=== PATIENT | male | born 1955 | race Caucasian/White ===

== ENCOUNTER 2016-08-19 08:11 | Day surgery (SDC) | payer MEDICARE ==
[~2016-08-19] VITALS: Ht 177.8 cm; Wt 100.5 kg
--- NOTE | ~2016-08-19 | OR ---
PATIENT'S NAME: COLLETTE ZELAYA [facility] AGE: 60 Y [address] ROOM: [place] [id number] LOCATION: GPCU ADMIT DATE: 08/19/2016 OR/Procedure Report DISCHARGE DATE: FAMILY PHYSICIAN: Bertrand Vo MD ATTENDING PHYSICIAN: TYRONE HOUSE SURGEON: Tyrone House MD DIRECTORY CARRIER: DATE OF PROCEDURE: 08/19/2016 PREOPERATIVE DIAGNOSIS: End-stage renal disease. POSTOPERATIVE DIAGNOSIS: End-stage renal disease. PROCEDURE: Left arm brachiobasilic AV fistula. SOFA BACK UPHOLSTERER: JANES Rodriguez ANESTHESIA: General. ESTIMATED FLUID LOSS: Minimal, approximately 10 mL. OPERATIVE FINDINGS: Good thrill and bruit in the basilic vein. Strong radial and ulnar signals at the end of the case. DESCRIPTION OF PROCEDURE: The patient was brought to the operating room, placed supine on the operating table, placed under general anesthesia. Prepped and draped in a sterile manner. Preoperative time-out was performed. We made a standard incision, 2 cm proximal to the antecubital fossa, dissected down the fascia, incised the fascia in a longitudinal manner. Dissected out the brachial artery. Dissected out the basilic vein, also in a 360-degree fashion, we transected it distally. We then gave 5000 units of heparin. We clamped proximally and distally. We already made a 4 mm arteriotomy and then did a standard 6-0 Prolene anastomosis from the vein to the artery. We removed the clamps. There was excellent flow into the basilic vein, which was confirmed with the use of Doppler. We then checked the radial and ulnar signal, which were also patent. The heparin was reversed with protamine. Deep layers were closed with 2-0 and 3-0 Vicryl. Skin was closed with running 4-0 Monocryl. The patient tolerated the procedure well and transferred to recovery room and then home later that day. TYRONE HOUSE MD PATIENT'S NAME: COLLETTE ZELAYA [facility] AGE: 60 Y [address] ROOM: [place] [id number] LOCATION: [facility] ADMIT DATE: 08/19/2016 OR/Procedure Report DISCHARGE DATE: FAMILY PHYSICIAN: Bertrand Vo MD ATTENDING PHYSICIAN: TYRONE HOUSE/gill /[id number] d: 08/19/16 1353 t: 08/21/16 181, OPERATIVE SUMMARY
[~2016-08-19 08:11] MED LIST: ALDACTONE25 MG PO; ATIVAN 0.5MG0.5 MG PO; COLACE100 MG PO; COREG6.25 MG PO; ENULOSE UD L30 ML/EA PO; FISH OIL1000 MG PO; GLUCOPHAGE500 MG PO; HUMIBID LA (MU600 MG PO; LEVOTHROID (SY50 MCG PO; LIPITOR10 MG PO; LOPRESSOR25 MG PO; MIRALAX PO527 GM/BOT PO; RANEXA ER500 MG PO; RENVELA800 MG PO; SENSIPAR60 MG PO; TOPAMAX25 MG PO; VELPHORO500 MG PO; VITAMIN B-625 MG PO; ZAROXOLYN5 MG PO; ZINCATE (50 MG220 MG PO
[2016-08-19 09:31] LABS: BASOPHIL # 0.1 K/uL (0.0-0.2); BASOPHIL % 0.6 %; EOSINOPHIL # 0.2 K/uL (0.0-0.5); EOSINOPHIL % 2.2 %; HEMATOCRIT 42.6 % (37.0-53.0); HEMOGLOBIN 14.2 g/dL (11.0-16.0); IMMATURE GRANULOCYTE % 0.5 %; LYMPHOCYTE # 0.8 K/uL (0.8-4.0); LYMPHOCYTE % 9.3 %; MCH 34.4 pg (27.0-34.0); MCHC 33.3 gm/dL (32.0-36.5); MCV 103.1 fl (83.0-98.0); MONOCYTE # 0.8 K/uL (0.0-1.0); MONOCYTE % 9.3 %; MPV 10.4 fl (9.4-12.4); NEUTROPHIL # (ANC) 6.3 K/uL (1.4-9.0); NEUTROPHIL % 78.1 %; NRBC % 0 /100WBC (0-0.00); PLATELET COUNT 196 K/uL (150-450); RBC 4.13 M/uL (3.50-5.50); RDW-CV 17.5 % (11.9-14.6)
[2016-08-19] MEDS ORDERED: ADVIL200 MG PO (09:33)
[2016-08-19 09:46] LABS: ALBUMIN 3.1 gm/dL (3.5-5.0); ANION GAP 21.4 (10.0-19.0); POTASSIUM 4.4 mMol/L (3.7-5.1); TOTAL BILIRUBIN 0.3 mg/dL (0.0-1.5); TOTAL PROTEIN 7.1 g/dL (6.0-8.4)
[2016-08-19 09:50] LABS: CALCIUM 7.2 mg/dL (8.5-10.5); CREATININE 8.8 mg/dL (0.6-1.3)
--- NOTE | 2016-08-19 17:08 | NUR ---
Significant Event: A/O. VSS on RA. Denies pain. Good Bruit and thrill to r) fistula. Up with 1 assist. NO narcs after 0200 - to dismiss by 0900 tomorrow at the latest to make it to 1045 dialysis in [place]. Dismissal orders checked off. Follow up:
[2016-08-19] MEDS ORDERED: NORCO 5-325 TA1 EACH PO (17:09)
--- NOTE | 2016-08-20 04:50 | NUR ---
Significant Event: A/O, SBP 120-150s, HR in afib 60-80s, RA, afebrile, 1 norco given at 2015 for pain to R)arm at fistula site, bruit and thrill present but faint, hs accucheck 113, pleasant with cares Follow up: to leave at 0800, dismissal paperwork completed, 1045 dialysis chair in [place], patient driving self there
--- NOTE | 2016-08-20 08:31 | NUR ---
Mkiy Jules RN reviewed dismissal instructions with patient. Discontinued telemetry and saline lock. Patient denies questions regarding dismissal information. Patient taken to vehicle by Rios Duong CNA via wheelchair. Bruit and thrill noted to right arm fistula.
[2016-11-17] MEDS ORDERED: TYLENOL325 MG PO (11:28)
[2016-11-17] MEDS ORDERED: ATIVAN 0.5MG0.5 MG PO (11:29)
[2016-11-17] MEDS ORDERED: GENERLAC10 GM/15 M PO (11:31)
[2016-11-17] MEDS ORDERED: MIRALAX17 GM PO (11:33)
[2016-11-17] MEDS ORDERED: SENSIPAR60 MG PO (11:34)
== END 2016-08-20 08:31 | disposition disaster alternative care site (69) ==
LOC: UNDOADMIN 08:11 → GPCU 08:11 → GSDC 08:11 → GPCU 08:11 → EDSTATUS 09:00 → GPCU 14:48 → GSDC 08-20 08:31
PROVIDERS: Surgery Vascular Surgery
PROC: 03180ZF Bypass Left Brachial Artery to Lower Arm Vein, Open Approach (ICD-10-PCS; principal; 2016-08-19)
DX: E11.22 Type 2 diabetes mellitus with diabetic chronic kidney disease (principal); I13.2 Hypertensive heart and chronic kidney disease with heart failure and with stage 5 chronic kidney disease, or end stage renal disease; N18.6 End stage renal disease; I50.9 Heart failure, unspecified; I25.10 Atherosclerotic heart disease of native coronary artery without angina pectoris; I48.91 Unspecified atrial fibrillation; E78.5 Hyperlipidemia, unspecified; F32.9 Major depressive disorder, single episode, unspecified; F17.210 Nicotine dependence, cigarettes, uncomplicated; Z99.2 Dependence on renal dialysis; Z79.899 Other long term (current) drug therapy
CPT/HCPCS: J0690; J1644; J2001; J2405; J2720; J3010; J7030

== ENCOUNTER 2016-11-18 10:43 | Day surgery (SDC) | payer MEDICARE ==
--- NOTE | 2016-11-17 14:31 | NUR ---
Carbide Operator- phone call from Mike with Dr. Gold's office with concerns regarding patient's procedure tomorrow. Patient is scheduled for R Fistula tomorrow. The concern is that he is driving himself from [place] and he plans on driving himself home. Per Mike, she was told by the dialysis center in [place] ([phone]) that patient does not have any money to pay for gas here, does not have food, and does not have anyone available to bring him to [place]. I called Rena at [facility] in [place] and she states they were able to give him a gas voucher and she gave him some of her own gibson to assure he had gas to get him to [place]. He does not have a working phone at this time. His friends that normally help him with transportation, Sierra and Serafin Martinez ([phone]) are on vacation in [place] so they are not available to assist him. Per Rena he plans on driving himself to [place] tomorrow. He is scheduled to arrive at the [facility] at 1030 on November 18. I spoke to Tabby in Pre-op and she was concerned as she was thinking I was setting patient up to stay in the [facility] for tomorrow night following surgery and she states this is not advised due to liability reasons. I informed her that I was looking at the [facility] for tonight (prior to surgery) not for tomorrow night. She states he will not be coming until tomorrow so no room is needed tonight. They would like to assure that he can stay tomorrow night. I contacted Serge Ramirez, [employer] and she indicates we will be able to have patient stay tomorrow night following surgery as an SDR as long as Dr. Gold makes note that patient is here for "out patient procedure with an overnight stay". I shared this information with both Tabby in Preop and Mike at Dr. Gold's office, as well as director Pavithra Lynn.
[~2016-11-18] VITALS: Ht 177.8 cm; Wt 93.8 kg
--- NOTE | ~2016-11-18 | OR ---
PATIENT'S NAME: COLLETTE ZELAYA [facility] AGE: 61 Y [address] ROOM: [address] [address] LOCATION: [facility] ADMIT DATE: 11/18/2016 OR/Procedure Report DISCHARGE DATE: FAMILY PHYSICIAN: Tyrel Devries MD ATTENDING PHYSICIAN: TYRONE HOUSE SURGEON: Tyrone House MD RHIC SYSTEMS SAFETY ENGINEER: Dehydrogenation Converter Operator: JANES Rodriguez. DATE OF PROCEDURE: 11/18/2016 PREOPERATIVE DIAGNOSIS: End-stage renal disease with a right brachiobasilic fistula POSTOPERATIVE DIAGNOSIS: End-stage renal disease with a right brachiobasilic fistula PROCEDURE: Right arm basilic fistula superficialization. ANESTHESIA: General. ESTIMATED BLOOD LOSS: 10 mL. OPERATIVE FINDINGS: Fistula now located right under the skin, easily accessible. DESCRIPTION OF PROCEDURE: The patient was brought to the operating room, placed supine on the operating table, prepped and draped in a sterile manner. Preoperative time-out was performed. The patient received preoperative antibiotics. We made an incision along the entire length of the basilic vein. We then dissected in a 360-degree fashion ligating any side branches. We then reapproximated the deep layers below the vein with 2-0 Vicryl. We then reapproximated the skin right over the vein with interrupted nylon stitches. The patient tolerated the procedure well and transferred to the recovery room and then admitted for observation for 24 hours. MD PETRA SANTA/modl /[id number] d: 11/18/16 2252 t: 11/20/16 1014, OPERATIVE SUMMARY
[~2016-11-18 10:43] MED LIST changes: +ADVIL200 MG PO; +GENERLAC10 GM/15 M PO; +MIRALAX17 GM PO; +NORCO 5-325 TA1 EACH PO; +TYLENOL325 MG PO
[2016-11-18 11:30] LABS: BASOPHIL # 0.1 K/uL (0.0-0.2); BASOPHIL % 0.7 %; EOSINOPHIL # 0.1 K/uL (0.0-0.5); EOSINOPHIL % 0.5 %; HEMOGLOBIN 18.1 g/dL (11.0-16.0); IMMATURE GRANULOCYTE % 0.2 %; LYMPHOCYTE # 0.9 K/uL (0.8-4.0); LYMPHOCYTE % 8.7 %; MCHC 33.3 gm/dL (32.0-36.5); MCV 99.6 fl (83.0-98.0); MONOCYTE # 1.1 K/uL (0.0-1.0); MONOCYTE % 11.1 %; MPV 10.5 fl (9.4-12.4); NEUTROPHIL % 78.8 %; NRBC % 0 /100WBC (0-0.00); PLATELET COUNT 190 K/uL (150-450); RDW-CV 16.8 % (11.9-14.6); WBC 10.1 K/uL (4.0-11.0)
[2016-11-18 11:31] LABS: HEMATOCRIT 54.3 % (37.0-53.0); MCH 33.2 pg (27.0-34.0); RBC 5.45 M/uL (3.50-5.50)
[2016-11-18 11:50] LABS: ALBUMIN 3.3 gm/dL (3.5-5.0); CALCIUM 8.3 mg/dL (8.5-10.5); TOTAL PROTEIN 7.9 g/dL (6.0-8.4)
[2016-11-18 11:55] LABS: TOTAL BILIRUBIN 0.5 mg/dL (0.0-1.5)
--- NOTE | 2016-11-18 16:52 | NUR ---
LATE ENTRY 1500 PATIENT DOING WELL RIGHT ARM HAS GOOD PULSES. BLOOD PRESSURES ARE LOW AT THIS TIME. PATIENT IS DRINKING WATER AND TAKING ICE CHIPS. SALINE IS INFUSING. 1530 PRESSURES ARE BETTER. MEAN HAS ALWAYS BEEN GREATER THAN 60. PATIENT REMAINS ALERT AND ORIENTATED.
--- NOTE | 2016-11-18 19:21 | NUR ---
PATIENT RETURNED TO FLOOR AT 1645. RIGHT ARM GAUZE WRAP D/I. RIGHT ARM CSM ADEQUATE. LEFT CHEST DIALYSIS CATHETER IN PLACE, DRESSING D/I. POOR TRANSFER WITH TWO ASSIST AND CANE. PATIENT PLANS ON DIALYSIS TOMORROW IN [place] WHEN HE RETURNS THERE. DARA TWO TABS IN PACU.
--- NOTE | 2016-11-19 03:37 | NUR ---
Shift Summary: Patient has difficulty getting from a sitting to standing position. Once he is up he ambulates well with walker and standby assist. Has not requested pain medication this shift. Is on dialysis. Has dialysis on //Wed. Plans to have dialysis in [place] today once he is discharged. Has a Dialysis Cath to left chest. Unable to assess fistula to right upper arm due to dressing. Does not make urine. On accuchecks AC&HS with mild sliding scale. Was 153 at bedtime. Patient does have a diabetic book.
[2016-11-19] MEDS ORDERED: NORCO 5-325 TA1 EACH PO (08:46)
--- NOTE | 2016-11-19 09:40 | NUR ---
D: PATIENT ALERT AND ORIENTED X3. GAUZE/TEGADERM DRESSING INTACT TO R) UPPER ARM, WITH SMALL OLD DRAINAGE. DIALYSIS CATH TO L) CHEST, DRESSING INTACT. DENIES PAIN WHEN ASKED. AMBULATES IN ROOM, WITH USE OF WALKER. ACCUCHECK 93 PRIOR TO BREAKFAST. DISCHARGE INSTRUCTIONS REVIEWED WITH PATIENT, VERBALIZES UNDERSTANDING. PATIENT ASSISTED TO VEHICLE VIA W/C AND TA ASSISTANCE. DISMISSED WITH PERSONAL BELONGINGS. 100% OF BREAKFAST TAKEN, NO C/O NAUSEA. PATIENT REPORTED HAD BM.
--- NOTE | 2016-11-19 10:00 | NUR ---
Attempted to see patient regarding consult from Dr. Gold for "home site care" but patient already discharged about 15 minutes ago.
== END 2016-11-19 09:46 | disposition disaster alternative care site (69) ==
LOC: GSDC 10:43 → GPCU 10:43 → GSDC 11:00 → G3N 16:45 → GSDC 11-19 09:46
PROVIDERS: Surgery Vascular Surgery
PROC: 05WYX3Z Revision of Infusion Device in Upper Vein, External Approach (ICD-10-PCS; principal; 2016-11-18)
DX: E11.22 Type 2 diabetes mellitus with diabetic chronic kidney disease (principal); I13.2 Hypertensive heart and chronic kidney disease with heart failure and with stage 5 chronic kidney disease, or end stage renal disease; I50.9 Heart failure, unspecified; N18.6 End stage renal disease; I48.91 Unspecified atrial fibrillation; I25.10 Atherosclerotic heart disease of native coronary artery without angina pectoris; F41.9 Anxiety disorder, unspecified; E78.5 Hyperlipidemia, unspecified; F17.210 Nicotine dependence, cigarettes, uncomplicated; Z79.899 Other long term (current) drug therapy
CPT/HCPCS: J0690; J1100; J2001; J2405; J7030